=== PATIENT | female | born 1990 | race Caucasian/White ===

== ENCOUNTER 2020-08-19 15:09 | Emergency (ER) | payer SELFPAY ==
[2020-08-19] MEDS ORDERED: Ondansetron ODT 4 MG TAB ONE (16:39)
[2020-08-19] MEDS ORDERED: HYDROcodone/Acetaminophen 10/325 mg Tablet ONE (16:40)
[2020-08-19] MEDS ORDERED: Clindamycin 150 MG CAP ONE (16:40)
== END 2020-08-19 16:58 | disposition home or self-care (01) ==
LOC: CSHERS 15:09
DX: K02.9 Dental caries, unspecified (principal); F17.210 Nicotine dependence, cigarettes, uncomplicated; E66.9 Obesity, unspecified
CPT/HCPCS: 99282; Q0162